=== PATIENT | female | born 1980 | race Caucasian/White ===

== ENCOUNTER 2024-12-02 14:41 | Emergency (ER) | payer MEDICAID ==
[~2024-12-02] VITALS: Ht 157.5 cm; Wt 67.4 kg
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
[2024-12-02 15:32] VITALS: BP 138/68; PULSE 107; RESP 18; O2SAT 97
[2024-12-02] MEDS: HYDROcodone-ACET 10/325MG TAB PO ONE (16:24)
== END 2024-12-02 17:03 | disposition left against medical advice (07) ==
LOC: ER 14:41
DX: R10.11 Right upper quadrant pain (principal); R07.89 Other chest pain; F17.210 Nicotine dependence, cigarettes, uncomplicated; V89.2XXA Person injured in unspecified motor-vehicle accident, traffic, initial encounter; Y93.89 Activity, other specified; Y92.410 Unspecified street and highway as the place of occurrence of the external cause; Y99.8 Other external cause status